=== PATIENT | female | born 1950 | race Caucasian/White ===

== ENCOUNTER 2017-03-28 07:28 | Emergency (ER) | payer OTHER ==
[2017-03-28] MEDS ORDERED: ONDANSETRON HCL IV 4 MG/2 ML VIAL IVP ONE (07:45)
[2017-03-28] MEDS ORDERED: HYDROMORPHONE HCL 1 MG/ML SYRINGE IVP ONE (07:45)
[2017-03-28] MEDS ORDERED: 0.9 % SODIUM CHLORIDE 1000ML 1,000 ML IV SCH (07:45)
--- NOTE | 2017-03-28 07:52 | Emergency Department Record ---
History of Present Illness - General Chief complaint: Pain Stated complaint: sharp pain r side up to shoulder Time Seen by Provider: 03/28/17 07:44 Source: Patient Mode of Arrival: Ambulatory Limitations: No limitations - History of Present Illness Initial comments: 67 yo female presents to ED for evaluation of RUQ pain that began approximately 2.5 hours ago. Patient denies vomiting, fevers, chills, or change in stools. Patient denies previous abdominal surgery, denies cough or chest pain symptoms. MD Complaint: Abdominal Pain Onset/Timin -: Hour(s) History of Same: No Quality: Sharp, Stabbing Consistency: Constant Improves with: Nothing Worsens with: Nothing Associated Symptoms: Denies other symptoms - Related Data Previous Rx's Medication Instructions Recorded Hydrocodone/Acetaminophen [[place] 1 each PO Q6H PRN #10 tablet 03/28/17 5-325 Tablet] Nitrofurantoin [place] [Macrobid] 100 mg PO BID #14 capsule 03/28/17 Allergies Allergy/AdvReac Type Severity Reaction Status Date / Time venom-honey bee Allergy Severe ANAPHYLAXIS Verified 03/28/17 07:36 [bee venom (honey bee)] dipyridamole Allergy Intermediate RASH Verified 03/28/17 07:36 prednisone AdvReac "prefer Verified 03/28/17 07:36 not to take" sulfamethoxazole AdvReac ABDOMINAL Verified 03/28/17 07:36 [From Bactrim] PAIN trimethoprim [From Bactrim] AdvReac ABDOMINAL Verified 03/28/17 07:36 PAIN Allergies: Allergy Unknown RASH Uncoded 08/12/13 19:25 Travel Screening - Travel/Exposure Within Last 30 Days Have you traveled within the last 30 days?: No Review of Systems Constitutional: Denies: Chills, Fever, Malaise, Night sweats Eyes: Denies: Eye discharge, Eye pain ENT: Denies: Congestion, Ear pain, Epistaxis Respiratory: Denies: Cough, Dyspnea Cardiovascular: Denies: Chest pain, Dyspnea on exertion Endocrine: Denies: Fatigue, Heat or cold intolerance Gastrointestinal: Reports: Abdominal pain. Denies: Constipation, Nausea, Vomiting Genitourinary: Denies: Incontinence, Retention Musculoskeletal: Denies: Arthralgia, Back pain, Gout, Joint swelling Skin: Denies: Bruising, Change in color Neurological: Denies: Abnormal gait, Confusion, Headache, Seizure Psychiatric: Denies: Anxiety Hematological/Lymphatic: Denies: Anemia, Blood Clots Past Medical History - SOCIAL HISTORY Smoking Status: Never smoker Alcohol Use: None Drug Use: None - RESPIRATORY Hx Respiratory Disorders: No - CARDIOVASCULAR Hx Cardio Disorders: Yes Hx Cardiac Cath: Yes (negative) Hx Hypertension: Yes Comment:: Born with a heart murmur-no problems or recent chest pain - NEURO Hx Neuro Disorders: Yes Hx of Migraines: Yes (rare) Hx TIA: Yes (many years ago) - GI Hx GI Disorders: Yes Hx Abdominal Pain: Yes Hx Diverticulitis: Yes Hx Reflux: Yes Hx Nausea/Vomiting: Yes Hx Ulcer: Yes Comment:: c/o constipation - Hx Genitourinary Disorders: No - ENDOCRINE Hx Endocrine Disorders: Yes Hx Thyroid Disease: Yes - MUSCULOSKELETAL Hx Musculoskeletal Disorders: Yes Comment:: Severe scoliosis - PSYCH Hx Psych Problems: No - HEMATOLOGY/ONCOLOGY Hx Hematology/Oncology Disorders: Yes Hx Cancer: Yes (cervical) Family Medical History Any Significant Family History?: Yes Hx Cancer: Brother/Sister Hx HTN: Mother Physical Exam - General General Appearance: Alert, Oriented x3, Cooperative, Moderate distress Limitations: No limitations - Head Head exam: Atraumatic, Normocephalic, Normal inspection Head exam detail: negative: Abrasion, Contusion, Major's sign, General tenderness, Hematoma, Laceration - Eye Eye exam: Normal appearance. negative: Conjunctival injection, Periorbital swelling, Periorbital tenderness, Scleral icterus - ENT Ear exam: negative: Auricular hematoma, Auricular trauma Nasal Exam: negative: Active bleeding, Discharge, Dried blood, Foreign body Mouth exam: negative: Drooling, Laceration, Muffled voice, Tongue elevation - Neck Neck exam: Normal inspection. negative: Meningismus, Tenderness - Respiratory Respiratory exam: Normal lung sounds bilaterally. negative: Rales, Respiratory distress, Rhonchi, Stridor - Cardiovascular Cardiovascular Exam: Regular rate, Normal rhythm, Normal heart sounds - GI/Abdominal GI/Abdominal exam: Soft, Tenderness, Other (TTP over the RUQ on examination, guarding present, no rebound.). negative: Rebound, Rigid - Rectal Rectal exam: Deferred - exam: Deferred - Extremities Extremities exam: Normal inspection. negative: Calf tenderness, Pedal edema, Tenderness - Back Back exam: Denies: CVA tenderness (R), CVA tenderness (L) - Neurological Neurological exam: Alert, Normal gait, Oriented X3 - Psychiatric Psychiatric exam: Normal affect, Normal mood - Skin Skin exam: Normal color. negative: Abrasion Type of lesion: negative: abrasion Course Vital Signs 03/28/17 07:31 Temperature 97.4 F L Pulse Rate 93 H Respiratory 20 Rate Blood Pressure 152/80 Pulse Ox 99 - Reevaluation(s) Reevaluation #1: 03/28/17 09:05 Labs reviewed and are grossly unremarkable for an acute process. Patient reassessed and updated on all results, reports that her pain symptoms are down to 5/10 and appears much more comfortable. Reevaluation #2: 03/28/17 09:20 CT Abdomen and Pelvis: No acute process Hepatic cysts. Reevaluation #3: 03/28/17 09:50 UA reviewed: 16-20 WBCs Few bacteria Will treat with Macrobid and instructions for further GB evaluation as outpatient. Medical Decision Making - Lab Data Result diagrams: 03/28/17 07:20 03/28/17 07:20 Disposition Disposition: Discharge Clinical Impression: Biliary colic Abdominal pain Qualifiers: Abdominal location: right upper quadrant Qualified Code(s): R10.11 - Right upper quadrant pain Disposition: Home, Self-Care Condition: (2) Stable Instructions: Biliary Colic (ED) Additional Instructions: Return to ED if your symptoms worsen or if you have any concerns. [place]/Macrobid as directed for recurrent pain symptoms. Follow-up with your family doctor in 3-5 days for further evaluation (possible HIDA scan). Prescriptions: Hydrocodone/Acetaminophen [[place] 5-325 Tablet] 1 each PO Q6H PRN #10 tablet PRN Reason: Pain - Moderate (5-7) Nitrofurantoin [place] [Macrobid] 100 mg PO BID #14 capsule Forms: Patient Portal Access Time of Disposition: 09:22 Quality - Quality Measures Quality Measures: N/A - Blood Pressure Screening Does Patient Have Any of the Following: Active Dx of HTN Blood Pressure Classification: Pre-Hypertensive BP Reading Systolic Measurement: 152 Diastolic Measurement: 80 Screening for High Blood Pressure: Patient Exclusion, Hx of HTN [G9744]
[2017-03-28 07:58] LABS: BASO % 0.4 % (0-6); EOS % 1.6 % (0-6); GRAN % 60.7 % (47-80); HEMATOCRIT 41.1 % (35.0-47.0); HEMOGLOBIN 13.7 gm/dl (11.6-16.0); LYMPH % 30.2 % (16-45); MEAN CELL VOLUME 88.2 fl (81-97); MEAN CORPUSCULAR HEMOGLOBIN 29.4 pg (27-33); MEAN CORPUSCULAR HGB CONC 33.3 g/dl (32-36); MEAN PLATELET VOLUME 9.7 fl (7.4-10.4); MONO % 7.1 % (0-9); PLATELET COUNT 347 K/uL (130-400); RED BLOOD COUNT 4.66 M/uL (3.80-5.40); RED CELL DISTRIBUTION WIDTH 14.1 % (11.5-14.5); WHITE BLOOD COUNT W/O DIFF 6.9 K/uL (4.2-12.2)
[2017-03-28 08:11] LABS: BLOOD UREA NITROGEN 18 mg/dL (8-23); CREATININE 0.6 mg/dL (0.5-0.9); EST GLOMERULAR FILTRATION RATE > 60 mL/min
[2017-03-28 08:14] LABS: GLUCOSE,RANDOM 103 mg/dL (74-109)
[2017-03-28 08:16] LABS: ALB/GLOB RATIO 1.4 (1.1-1.8); ALBUMIN 4.7 g/dL (4.0-5.0); ALT/SGPT 12 U/L (<33); AST/SGOT 14 U/L (10.0-35.0)
[2017-03-28 08:17] LABS: ALKALINE PHOSPHATASE 70 U/L (35-104); LIPASE 18 U/L (13-60)
[2017-03-28 09:36] LABS: URINE APPEARANCE CLEAR; URINE BILIRUBIN NEGATIVE (NEGATIVE); URINE BLOOD TRACE-I (NEGATIVE); URINE COLOR YELLOW; URINE GLUCOSE (UA) NEGATIVE (NEGATIVE); URINE KETONE NEGATIVE (NEGATIVE); URINE LEUKOCYTE ESTERASE MODERATE (NEGATIVE); URINE NITRITE NEGATIVE (NEGATIVE); URINE PROTEIN NEGATIVE (NEGATIVE); URINE UROBILINOGEN 0.2 E.U./dL (0.20 - 1.00)
[2017-03-28 09:43] LABS: URINE BACTERIA FEW; URINE EPITHELIAL CELLS 0 - 2 (FEW); URINE RBC 0 - 2 (NONE SEEN); URINE WBC 16 - 20 (0-2/hpf)
--- NOTE | 2017-03-30 00:17 | CT SCAN REPORT ---
EXAM: CT SCAN ABDOMEN/PELVIS W CONTRAST HISTORY: SEVERE RIGHT-SIDED ABDOMINAL PAIN SINCE THIS MORNING. TECHNIQUE: Standard CT imaging of the abdomen and pelvis was performed with contrast. 100 mL of Omnipaque-300 were administered. Additional coronal and sagittal reformatted images were also performed. COMPARISON: 08/09/2015. ENCOUNTER: Not applicable. FINDINGS: The lung bases are clear. Stable tiny cysts are present within the liver. The gallbladder is mildly distended but otherwise unremarkable. There is no evidence for acute cholecystitis. There is no biliary ductal dilatation. The pancreas, spleen, and adrenal glands are normal. Calcified granulomas are present within the spleen. The kidneys and ureters are unremarkable. There is no aortic aneurysm or dissection. There is no retroperitoneal lymphadenopathy. The stomach and epigastrium are normal. There is a moderate amount of stool within the colon. There are no associated inflammatory changes. A small appendicolith is present and is not significantly different from the prior study. The appendix is otherwise normal and air-filled. There is no evidence for appendicitis. The small bowel loops are normal in caliber. There is no pneumoperitoneum or ascites. The uterus and adnexa appear normal. The urinary bladder is unremarkable. Dextroconvex scoliosis is present within the thoracolumbar spine. Multilevel degenerative changes are also present within the spine. There are no acute osseous abnormalities. IMPRESSION: 1. NO ACUTE INTRAABDOMINAL PATHOLOGY. 2. STABLE CHRONIC FINDINGS ABOVE. JOB NUMBER: [id number] MTDD
== END 2017-03-28 10:00 | disposition home or self-care (01) ==
LOC: ER 07:28
DX: K80.50 Calculus of bile duct without cholangitis or cholecystitis without obstruction (principal); R10.11 Right upper quadrant pain; M25.511 Pain in right shoulder; I10 Essential (primary) hypertension
CPT/HCPCS: 99284 ×2; 96374; 83690; 85025; 80053; 81001; 74177; Q9967; J1170; J7030

== ENCOUNTER 2017-04-28 13:22 | Emergency (ER) | payer OTHER ==
--- NOTE | 2017-04-28 13:49 | Emergency Department Record ---
History of Present Illness - General Chief Complaint: Abdominal Pain Stated Complaint: ABD PAINS Time Seen by Provider: 04/28/17 13:47 Source: Patient, RN notes reviewed Mode of Arrival: Ambulatory - History of Present Illness Initial Comments: abdominal pain for 2 months and scheduled for an US of ABD on wednesday. Abd pain in the right upper quad area. Similiar episode feb and this episode started 2 hours ago and no vomiting with nausea and no diarrhia, CT of abd and pelvis mar 28 2017 negative MD Complaint: Abdominal pain Onset/Timin -: Month(s) Location: RUQ Radiation: None Migration to: No migration Severity: Severe Quality: Sharp Consistency: Intermittent Improves With: Nothing Worsens With: Nothing Associated Symptoms: Nausea - Related Data Hx Age of Menopause: 52 Previous Rx's Medication Instructions Recorded Oxycodone HCl/Acetaminophen 1 each PO Q4H PRN #14 tab 04/28/17 [Percocet 7.5mg/325mg] Allergies Allergy/AdvReac Type Severity Reaction Status Date / Time venom-honey bee Allergy Severe ANAPHYLAXIS Verified 03/28/17 07:36 [bee venom (honey bee)] dipyridamole Allergy Intermediate RASH Verified 03/28/17 07:36 acetaminophen [From [place]] AdvReac prefers Verified 04/28/17 13:38 not to take it hydrocodone [From [place]] AdvReac prefers Verified 04/28/17 13:38 not to take it morphine AdvReac prefers Verified 04/28/17 13:38 not to take it nitrofurantoin AdvReac stomach Verified 04/28/17 13:37 [From Macrobid] pains prednisone AdvReac "prefer Verified 03/28/17 07:36 not to take" sulfamethoxazole AdvReac ABDOMINAL Verified 03/28/17 07:36 [From Bactrim] PAIN trimethoprim [From Bactrim] AdvReac ABDOMINAL Verified 03/28/17 07:36 PAIN Allergies: Allergy Unknown RASH Uncoded 08/12/13 19:25 Travel Screening - Travel/Exposure Within Last 30 Days Have you traveled within the last 30 days?: No Review of Systems Reviewed: No additional complaints except as noted below Constitutional: Reports: As per HPI. Denies: Chills, Fever, Malaise, Night sweats, Weakness, Weight change Eyes: Reports: As per HPI. Denies: Eye discharge, Eye pain, Photophobia, Vision change ENT: Reports: As per HPI. Denies: Congestion, Dental pain, Ear pain, Epistaxis , Hearing loss, Throat pain Respiratory: Reports: As per HPI. Denies: Cough, Dyspnea, Hemoptysis, Stridor, Wheezes Cardiovascular: Reports: As per HPI. Denies: Arrhythmia, Chest pain, Dyspnea on exertion, Edema, Murmurs, Orthopnea, Palpitations, Paroxysmal nocturnal dyspnea, Rheumatic Fever, Syncope Endocrine: Reports: As per HPI. Denies: Fatigue, Heat or cold intolerance, Polydipsia, Polyuria Gastrointestinal: Reports: As per HPI, Abdominal pain (right upper quad), Nausea. Denies: Constipation, Diarrhea, Hematemesis, Hematochezia, Melena, Vomiting Genitourinary: Reports: As per HPI. Denies: Abnormal menses, Discharge, Dyspareunia, Dysuria, Frequency, Hematuria, Incontinence, Retention, Urgency Musculoskeletal: Reports: As per HPI. Denies: Arthralgia, Back pain, Gout, Joint swelling, Myalgia, Neck pain Skin: Reports: As per HPI. Denies: Bruising, Change in color, Change in hair/ nails, Lesions, Pruritus, Rash Neurological: Reports: As per HPI. Denies: Abnormal gait, Confusion, Headache, Numbness, Paresthesias, Seizure, Tingling, Tremors, Vertigo, Weakness Psychiatric: Reports: As per HPI. Denies: Anxiety, Auditory hallucinations, Depression, Homicidal thoughts, Suicidal thoughts, Visual hallucinations Hematological/Lymphatic: Reports: As per HPI. Denies: Anemia, Blood Clots, Easy bleeding, Easy bruising, Swollen glands Past Medical History - SOCIAL HISTORY Smoking Status: Never smoker Alcohol Use: None Drug Use: None - RESPIRATORY Hx Respiratory Disorders: No - CARDIOVASCULAR Hx Cardio Disorders: Yes Hx Cardiac Cath: Yes (negative) Hx Hypertension: Yes Comment:: Born with a heart murmur-no problems or recent chest pain - NEURO Hx Neuro Disorders: Yes Hx of Migraines: Yes (rare) Hx TIA: Yes - GI Hx GI Disorders: Yes Hx Abdominal Pain: Yes Hx Diverticulitis: Yes Hx Reflux: Yes Hx Nausea/Vomiting: Yes Hx Ulcer: Yes - Hx Genitourinary Disorders: No Comment:: cyst on one kidney (right?) - ENDOCRINE Hx Endocrine Disorders: Yes Hx Thyroid Disease: Yes - MUSCULOSKELETAL Hx Musculoskeletal Disorders: Yes Comment:: Severe scoliosis - PSYCH Hx Psych Problems: No - HEMATOLOGY/ONCOLOGY Hx Hematology/Oncology Disorders: Yes Hx Cancer: Yes (cervical) Family Medical History Any Significant Family History?: Yes Hx Cancer: Brother/Sister Hx HTN: Mother Physical Exam - General General Appearance: Alert, Oriented x3, Cooperative, Moderate distress - Head Head exam: Normal inspection - Eye Eye exam: Normal appearance, PERRL Pupils: Normal accommodation - ENT ENT exam: Normal exam, Mucous membranes moist, Normal external ear exam, Normal orophraynx, TM's normal bilaterally Ear exam: Normal external inspection. negative: External canal tenderness Nasal Exam: Normal inspection. negative: Discharge, Sinus tenderness Mouth exam: Normal external inspection, Tongue normal Teeth exam: Normal inspection. negative: Dental caries Throat exam: Normal inspection. negative: Tonsillar erythema, Tonsillar exudate - Neck Neck exam: Normal inspection, Full ROM. negative: Tenderness - Respiratory Respiratory exam: Normal lung sounds bilaterally. negative: Respiratory distress - Cardiovascular Cardiovascular Exam: Regular rate, Normal rhythm, Normal heart sounds - GI/Abdominal GI/Abdominal exam: Soft, Normal bowel sounds, Tenderness (right upper quad and positive murphies sign) - Rectal Rectal exam: Deferred - exam: Deferred - Extremities Extremities exam: Normal inspection, Full ROM, Normal capillary refill. negative: Tenderness - Back Back exam: Reports: Normal inspection, Full ROM. Denies: Muscle spasm, Rash noted, Tenderness - Neurological Neurological exam: Alert, Normal gait, Oriented X3, Reflexes normal - Psychiatric Psychiatric exam: Normal affect, Normal mood - Skin Skin exam: Dry, Intact, Normal color, Warm Course Vital Signs 04/28/17 13:33 Temperature 97.6 F Pulse Rate 111 H Respiratory 20 Rate Blood Pressure 172/86 Pulse Ox 98 - Reevaluation(s) Reevaluation #1: patient is feeling some better and still has moderate pain. Will discuss with Dr. Brownlee 04/28/17 16:11 Reevaluation #2: discussed case with Dr Brownlee and he could do the case tomorrow at [facility] or wednesday at [facility] and I gave the patient that choice and she wanted it done tomorrow at [facility]. 04/28/17 16:22 Medical Decision Making - Lab Data Result diagrams: 04/28/17 14:00 04/28/17 14:00 Disposition Clinical Impression: Right upper quadrant abdominal pain, Biliary colic Abdominal pain Qualifiers: Abdominal location: right upper quadrant Qualified Code(s): R10.11 - Right upper quadrant pain Disposition: Home, Self-Care Condition: (1) Good Instructions: Biliary Colic (ED) Additional Instructions: follow tomorrow at [facility] for GB surgery No fatty foods and NPO after midnight Prescriptions: Oxycodone HCl/Acetaminophen [Percocet 7.5mg/325mg] 1 each PO Q4H PRN #14 tab PRN Reason: Analgesia Forms: Patient Portal Access Time of Disposition: 16:26 Quality - Quality Measures Quality Measures: N/A - Blood Pressure Screening Does Patient Have Any of the Following: No Blood Pressure Classification: Pre-Hypertensive BP Reading Systolic Measurement: 172 Diastolic Measurement: 86 Screening for High Blood Pressure: < Pre-Hypertensive BP, F/U Documented > [ G8950] Pre-Hypertensive Follow-up Interventions: Referral to alternative/primary care provider.
[2017-04-28] MEDS ORDERED: 0.9 % SODIUM CHLORIDE 1,000 ML BAG IV ONE (13:57)
[2017-04-28 14:20] LABS: BASO % 0.2 % (0-6); EOS % 0.6 % (0-6); GRAN % 69.2 % (47-80); HEMATOCRIT 40.4 % (35.0-47.0); HEMOGLOBIN 13.7 gm/dl (11.6-16.0); LYMPH % 23.8 % (16-45); MEAN CELL VOLUME 86.7 fl (81-97); MEAN CORPUSCULAR HEMOGLOBIN 29.4 pg (27-33); MEAN CORPUSCULAR HGB CONC 33.9 g/dl (32-36); MONO % 6.2 % (0-9); PLATELET COUNT 328 K/uL (130-400); RED BLOOD COUNT 4.66 M/uL (3.80-5.40); RED CELL DISTRIBUTION WIDTH 13.6 % (11.5-14.5); URINE APPEARANCE CLEAR; URINE BILIRUBIN NEGATIVE (NEGATIVE); URINE BLOOD NEGATIVE (NEGATIVE); URINE COLOR YELLOW; URINE GLUCOSE (UA) NEGATIVE (NEGATIVE); URINE KETONE NEGATIVE (NEGATIVE); URINE LEUKOCYTE ESTERASE MODERATE (NEGATIVE); URINE NITRITE NEGATIVE (NEGATIVE); URINE PROTEIN NEGATIVE (NEGATIVE); URINE UROBILINOGEN 0.2 E.U./dL (0.20 - 1.00); WHITE BLOOD COUNT W/O DIFF 8.2 K/uL (4.2-12.2)
[2017-04-28 14:27] LABS: URINE EPITHELIAL CELLS RARE (FEW); URINE RBC NONE SEEN (NONE SEEN)
[2017-04-28 14:30] LABS: BLOOD UREA NITROGEN 16 mg/dL (8-23); CREATININE 0.6 mg/dL (0.5-0.9); EST GLOMERULAR FILTRATION RATE > 60 mL/min
[2017-04-28 14:33] LABS: AMYLASE 74 U/L (28-100); GLUCOSE,RANDOM 105 mg/dL (74-109)
[2017-04-28 14:35] LABS: ALT/SGPT 10 U/L (<33)
[2017-04-28] MEDS: ONDANSETRON HCL IV 4 MG/2 ML VIAL IV ONE (14:35)
[2017-04-28] MEDS: HYDROMORPHONE HCL 1 MG/ML SYRINGE IVP ONE ×2 (14:35→15:37)
[2017-04-28 14:36] LABS: ALBUMIN 4.8 g/dL (4.0-5.0); ALKALINE PHOSPHATASE 74 U/L (35-104); AST/SGOT 13 U/L (10.0-35.0); LIPASE 22 U/L (13-60)
[2017-04-28] MEDS: 0.9 % SODIUM CHLORIDE 1000ML 1,000 ML IV PRN (14:36)
[2017-04-28 14:38] LABS: BILIRUBIN,DIRECT < 0.2 mg/dL (0-0.3)
--- NOTE | 2017-04-29 08:54 | ULTRASOUND REPORT ---
EXAM: ULTRASOUND OF THE ABDOMEN COMPLETE HISTORY: RIGHT UPPER QUADRANT PAIN. TECHNIQUE: Routine ultrasound examination of the abdomen was performed. Comparison: Abdominal ultrasound dated 08/01/15. FINDINGS: The pancreatic body is partially visualized and without focal abnormality. The pancreatic head and tail are obscured by overlying bowel gas. The mid and distal portions of the abdominal aorta are not visualized due to overlying bowel gas. The proximal abdominal aorta appears normal in caliber. The intrahepatic IVC is patent. The liver is homogeneous in echotexture. No intra or extrahepatic biliary ductal dilatation is seen with the common hepatic duct measuring 4.8 mm. There is moderate distention of the gallbladder. There is a small amount of sludge within the dependent gallbladder though no shadowing gallstone is appreciated. No gross gallbladder wall thickening or pericholecystic fluid. The bank vault clerk does, however, report a positive sonographic Duarte's sign. The spleen is not enlarged and is homogeneous in echotexture. The left renal margins are not optimally visualized due to poor sonographic window. No hydronephrosis. No cystic nor contour deforming solid renal mass. The right kidney measures 10.4 cm in length while the left renal length is estimated at 8.5 cm. IMPRESSION: 1. NO CHOLELITHIASIS IDENTIFIED THOUGH THERE IS QUESTIONABLE SLUDGE DEPENDENTLY IN THE GALLBLADDER NECK. NO GALLBLADDER WALL THICKENING OR PERICHOLECYSTIC FLUID. POSITIVE SONOGRAPHIC DUARTE'S SIGN. ACUTE CHOLECYSTITIS CANNOT BE EXCLUDED. 2. SUBOPTIMAL VISUALIZATION OF THE PANCREAS, ABDOMINAL AORTA AND LEFT KIDNEY. JOB NUMBER: [id number] MTDD
== END 2017-04-28 17:34 | disposition home or self-care (01) ==
LOC: ER 13:22
DX: K80.50 Calculus of bile duct without cholangitis or cholecystitis without obstruction (principal); R10.11 Right upper quadrant pain; R11.0 Nausea; I10 Essential (primary) hypertension
CPT/HCPCS: 76700; 80048; 80076; 81001; 82150; 83690; 85025; 96374; 96375; 96376; 99284; J1170; J2405

== ENCOUNTER 2017-08-27 16:01 | Emergency (ER) | payer OTHER ==
--- NOTE | 2017-08-27 16:10 | Emergency Department Record ---
History of Present Illness - General Chief Complaint: Abdominal Pain Stated Complaint: ABD PAIN Time Seen by Provider: 08/27/17 16:08 Source: Patient Mode of Arrival: Ambulatory Limitations: No limitations - History of Present Illness Initial Comments: The patient is here due to a 2-3 day hx of cramping diffuse AP mainly on the L with the LUQ> LLQ. She has had nausea but no vomiting, diarrhea, dysuria, or fever. The patient believes she is having Diverticulitis due to having similar pain like this in the past. The patient states her only abdominal surgery is a Cholecystectomy. She denies any loss of appetite or back pain. MD Complaint: Abdominal pain Onset/Timin -: Days(s) Location: LUQ, LLQ Radiation: LUQ, LLQ Quality: Cramping, Other Associated Symptoms: Nausea - Related Data Hx Age of Menopause: 52 Previous Rx's Medication Instructions Recorded Ciprofloxacin HCl [Cipro] 500 mg PO Q12HR #14 tablet 08/27/17 Metronidazole [Flagyl] 500 mg PO BID #14 tablet 08/27/17 Allergies Allergy/AdvReac Type Severity Reaction Status Date / Time venom-honey bee Allergy Severe ANAPHYLAXIS Verified 08/27/17 16:03 [bee venom (honey bee)] acetaminophen [From [place]] AdvReac prefers Verified 08/27/17 16:03 not to take it hydrocodone [From [place]] AdvReac prefers Verified 08/27/17 16:03 not to take it morphine AdvReac prefers Verified 08/27/17 16:03 not to take it nitrofurantoin AdvReac stomach Verified 08/27/17 16:03 [From Macrobid] pains prednisone AdvReac "prefer Verified 08/27/17 16:03 not to take" sulfamethoxazole AdvReac ABDOMINAL Verified 08/27/17 16:03 [From Bactrim] PAIN trimethoprim [From Bactrim] AdvReac ABDOMINAL Verified 08/27/17 16:03 PAIN Allergies: Allergy Unknown RASH Uncoded 08/12/13 19:25 Travel Screening - Travel/Exposure Within Last 30 Days Have you traveled within the last 30 days?: No Review of Systems Constitutional: Denies: Chills, Fever Eyes: Denies: Eye discharge ENT: Denies: Congestion Respiratory: Denies: Cough, Dyspnea Past Medical History - SOCIAL HISTORY Smoking Status: Never smoker Alcohol Use: None Drug Use: None - RESPIRATORY Hx Respiratory Disorders: No - CARDIOVASCULAR Hx Cardio Disorders: Yes Hx Cardiac Cath: Yes (negative) Hx Hypertension: Yes Comment:: Born with a heart murmur-no problems or recent chest pain - NEURO Hx Neuro Disorders: Yes Hx of Migraines: Yes (rare) Hx TIA: Yes - GI Hx GI Disorders: Yes Hx Abdominal Pain: Yes Hx Diverticulitis: Yes (diverticulosis) Hx Reflux: Yes Hx Nausea/Vomiting: Yes Hx Ulcer: Yes - Hx Genitourinary Disorders: No Comment:: cyst on one kidney (right?) - ENDOCRINE Hx Endocrine Disorders: Yes Hx Thyroid Disease: Yes - MUSCULOSKELETAL Hx Musculoskeletal Disorders: Yes Comment:: Severe scoliosis - PSYCH Hx Psych Problems: No - HEMATOLOGY/ONCOLOGY Hx Hematology/Oncology Disorders: Yes Hx Cancer: Yes (cervical) Family Medical History Any Significant Family History?: Yes Hx Cancer: Brother/Sister Hx HTN: Mother Physical Exam - General General Appearance: Alert, Oriented x3, Cooperative, No acute distress - Head Head exam: Atraumatic, Normocephalic, Normal inspection - Eye Eye exam: Normal appearance, PERRL, EOMI - Neck Neck exam: Normal inspection, Full ROM. negative: Tenderness - Respiratory Respiratory exam: Normal lung sounds bilaterally. negative: Respiratory distress - Cardiovascular Cardiovascular Exam: Regular rate, Normal rhythm, Systolic murmur (mild.). negative: Normal heart sounds - GI/Abdominal GI/Abdominal exam: Soft, Normal bowel sounds, Tenderness (There is mild diffuse tenderness in all 4 quads with the L side > R side. There is no guarding or rebound and the abdomen is very soft.) - Extremities Extremities exam: Normal inspection, Full ROM, Normal capillary refill. negative: Tenderness - Neurological Neurological exam: Alert. negative: Motor sensory deficit Course Vital Signs 08/27/17 16:04 Temperature 97.6 F Pulse Rate 92 H Respiratory 18 Rate Blood Pressure 163/89 Pulse Ox 99 - Reevaluation(s) Reevaluation #1: The patient is doing better at this time after the GI cocktail. She denies any significant pain and on exam has only very mild LLQ tenderness. There is no RLQ tenderness. I did explain the lab and CT results and the UA that does demonstrate a UTI. 08/27/17 17:48 Medical Decision Making - Data Complexity MDM Data: Labs Ordered and/or Reviewed, X-Ray Ordered and/or Reviewed - Lab Data Result diagrams: 08/27/17 16:15 08/27/17 16:15 - Radiology Data Radiology results: Report reviewed (CT: Diverticulosis with no definite Diverticulitis. There is a Appendicolith but no signs of appendicitis.) Disposition Disposition: Discharge Clinical Impression: Cystitis Disposition: Home, Self-Care Condition: (2) Stable Instructions: Urinary Tract Infection in Women (ED), Abdominal Pain (ED) Additional Instructions: Please take your home pain medicines and take the Cipro and Flagyl as directed. Please see your family doctor for recheck on Wednesday if not better and return to the ER for any worsening pain, fever, or vomiting. Prescriptions: Ciprofloxacin HCl [Cipro] 500 mg PO Q12HR #14 tablet Metronidazole [Flagyl] 500 mg PO BID #14 tablet Forms: Patient Portal Access Time of Disposition: 17:52 Quality - Quality Measures Quality Measures: N/A - Blood Pressure Screening View Details: Yes Does Patient Have Any of the Following: No Blood Pressure Classification: Pre-Hypertensive BP Reading Systolic Measurement: 163 Diastolic Measurement: 89 Screening for High Blood Pressure: < Pre-Hypertensive BP, F/U Documented > [ G8950] Pre-Hypertensive Follow-up Interventions: Referral to alternative/primary care provider.
[2017-08-27] MEDS ORDERED: ONDANSETRON HCL IV 4 MG/2 ML VIAL IV ONE (16:12)
[2017-08-27 16:27] LABS: BASO % 0.4 % (0-6); EOS % 0.7 % (0-6); GRAN % 57.1 % (47-80); HEMATOCRIT 40.6 % (35.0-47.0); HEMOGLOBIN 13.9 gm/dl (11.6-16.0); LYMPH % 34.2 % (16-45); MEAN CELL VOLUME 86.6 fl (81-97); MEAN CORPUSCULAR HEMOGLOBIN 29.6 pg (27-33); MEAN CORPUSCULAR HGB CONC 34.2 g/dl (32-36); MEAN PLATELET VOLUME 9.9 fl (7.4-10.4); MONO % 7.6 % (0-9); PLATELET COUNT 331 K/uL (130-400); RED BLOOD COUNT 4.69 M/uL (3.80-5.40); RED CELL DISTRIBUTION WIDTH 13.8 % (11.5-14.5); WHITE BLOOD COUNT W/O DIFF 8.1 K/uL (4.2-12.2)
[2017-08-27] MEDS: MAGNESIUM HYDROXIDE/AL HYDROX 30 ML, LIDOCAINE VISC 2% 15ML 15 ML PO ONE ×2 (16:31)
[2017-08-27] MEDS: 0.9 % SODIUM CHLORIDE 1,000 ML BAG IV ONE (16:32)
[2017-08-27 16:42] LABS: BLOOD UREA NITROGEN 8 mg/dL (8-23); CREATININE 0.6 mg/dL (0.5-0.9); EST GLOMERULAR FILTRATION RATE > 60 mL/min
[2017-08-27 16:45] LABS: GLUCOSE,RANDOM 95 mg/dL (74-109)
[2017-08-27 16:48] LABS: LIPASE 13 U/L (13-60)
[2017-08-27 16:55] LABS: TOTAL PROTEIN 7.6 g/dL (6.6-8.7)
[2017-08-27 17:00] LABS: ALBUMIN 4.7 g/dL (4.0-5.0); ALKALINE PHOSPHATASE 79 U/L (35-104); ALT/SGPT 14 U/L (<33); AST/SGOT 15 U/L (10.0-35.0)
[2017-08-27 17:01] LABS: BILIRUBIN,DIRECT < 0.2 mg/dL (0-0.3)
[2017-08-27 17:26] LABS: URINE APPEARANCE CLEAR; URINE BILIRUBIN NEGATIVE (NEGATIVE); URINE BLOOD TRACE-I (NEGATIVE); URINE COLOR YELLOW; URINE GLUCOSE (UA) NEGATIVE (NEGATIVE); URINE KETONE NEGATIVE (NEGATIVE); URINE LEUKOCYTE ESTERASE LARGE (NEGATIVE); URINE NITRITE NEGATIVE (NEGATIVE); URINE PROTEIN NEGATIVE (NEGATIVE); URINE UROBILINOGEN 0.2 E.U./dL (0.20 - 1.00)
[2017-08-27 17:36] LABS: URINE BACTERIA NONE SEEN; URINE EPITHELIAL CELLS 0 - 2 (FEW); URINE WBC 21 - 35 (0-2/hpf)
[2017-08-27] MEDS: KETOROLAC 30 MG/ML VIAL IVP ONE (17:45)
--- NOTE | 2017-08-29 13:07 | CT SCAN REPORT ---
DATE: 08/27/2017 at 1644 hours. EXAM: CT OF THE ABDOMEN AND PELVIS WITHOUT CONTRAST. HISTORY: Left lower quadrant and left upper abdominal pain since Wednesday with nausea. TECHNIQUE: Noncontrast images are obtained from the dome of the diaphragm to the symphysis pubis. FINDINGS: The lung bases and pleural spaces are clear. The liver is unremarkable in size and shape except for prominence of the left lobe of the liver. No definite hepatic masses are seen. The gallbladder is surgically absent. There are granulomata in the spleen without masses. The pancreas is poorly evaluated without intravenous contrast, but there are no obvious pancreatic masses. There is no evidence of renal calculi or hydronephrosis. There is no evidence of mesenteric mass or bowel dilatation. There is a calcified appendicolith in a nondilated appendix. There is no evidence of significant mesenteric inflammatory change. There are only scattered colonic diverticula without convincing evidence of diverticulitis. IMPRESSION: 1. THE EXAMINATION IS MODERATELY LIMITED WITHOUT INTRAVENOUS CONTRAST. THERE IS A CALCIFIED APPENDICOLITH PRESENT WITHOUT CONVINCING EVIDENCE FOR APPENDICITIS. 2. THERE ARE A FEW DIVERTICULA PRESENT WITHOUT EVIDENCE OF DIVERTICULITIS. NO RENAL OBSTRUCTIVE DISEASE IS SEEN. 3. NOTE IS MADE OF A PRONOUNCED DEXTROCONVEX THORACOLUMBAR ROTOSCOLIOSIS. JOB NUMBER: [id number] MTDD
== END 2017-08-27 18:12 | disposition home or self-care (01) ==
LOC: ER 16:01
DX: N30.01 Acute cystitis with hematuria (principal); R10.84 Generalized abdominal pain; R11.0 Nausea; I10 Essential (primary) hypertension
CPT/HCPCS: 99284 ×2; 96374; 83690; 85025; 80076; 80048; 81001; 74176; J1885; J3490; J7030

== ENCOUNTER 2017-08-29 19:30 | Emergency (ER) | payer OTHER ==
[2017-08-29] MEDS ORDERED: 0.9 % SODIUM CHLORIDE 1,000 ML BAG IV ONE (19:56)
[2017-08-29] MEDS ORDERED: ONDANSETRON HCL IV 4 MG/2 ML VIAL IV ONE (19:56)
--- NOTE | 2017-08-29 20:02 | Emergency Department Record ---
History of Present Illness - General Chief Complaint: Abdominal Pain Stated Complaint: ABDOMINAL PAIN Time Seen by Provider: 08/29/17 19:56 Source: Patient Mode of Arrival: Ambulatory Limitations: No limitations - History of Present Illness Initial Comments: 67 yo female presents with abdominal pain since Wednesday. The pain comes and goes. She has associated nausea without any vomiting. No diarrhea. No fevers. Her appetite is decreased. She reports a history of prior renal stones and diverticulosis with prior diverticulitis. No rash. The pain is migratory. She reports pain on the right and the left at different times. At the time of this examination she holds her left side. She was in the ED on Wednesday. MD Complaint: Abdominal pain Onset/Timin -: Days(s) Radiation: R flank, RLQ Migration to: R Flank Severity: Severe Severity scale (1-10): 9 Quality: Sharp, Stabbing Consistency: Constant Worsens With: Movement Associated Symptoms: Nausea - Related Data LMP (females 10-50): Unknown Hx Age of Menopause: 52 Previous Rx's Medication Instructions Recorded Ciprofloxacin HCl [Cipro] 500 mg PO Q12HR #14 tablet 08/27/17 Metronidazole [Flagyl] 500 mg PO BID #14 tablet 08/27/17 Allergies Allergy/AdvReac Type Severity Reaction Status Date / Time venom-honey bee Allergy Severe ANAPHYLAXIS Verified 08/27/17 16:03 [bee venom (honey bee)] acetaminophen [From [place]] AdvReac prefers Verified 08/27/17 16:03 not to take it hydrocodone [From [place]] AdvReac prefers Verified 08/27/17 16:03 not to take it morphine AdvReac prefers Verified 08/27/17 16:03 not to take it nitrofurantoin AdvReac stomach Verified 08/27/17 16:03 [From Macrobid] pains prednisone AdvReac "prefer Verified 08/27/17 16:03 not to take" sulfamethoxazole AdvReac ABDOMINAL Verified 08/27/17 16:03 [From Bactrim] PAIN trimethoprim [From Bactrim] AdvReac ABDOMINAL Verified 08/27/17 16:03 PAIN Allergies: Allergy Unknown RASH Uncoded 08/12/13 19:25 Travel Screening - Travel/Exposure Within Last 30 Days Have you traveled within the last 30 days?: No - Travel Symptoms Symptom Screening: None Review of Systems Constitutional: Denies: Chills, Fever, Malaise, Weakness Eyes: Denies: Eye discharge ENT: Denies: Congestion, Throat pain Respiratory: Denies: Cough, Dyspnea, Hemoptysis, Wheezes Cardiovascular: Denies: Chest pain, Syncope Endocrine: Reports: Fatigue. Denies: Polydipsia, Polyuria Gastrointestinal: Reports: Abdominal pain, Nausea. Denies: Constipation, Diarrhea, Hematemesis, Hematochezia, Melena, Vomiting Genitourinary: Denies: Dysuria, Urgency Musculoskeletal: Reports: Back pain. Denies: Arthralgia, Joint swelling, Myalgia Skin: Denies: Bruising, Change in color, Rash Neurological: Denies: Headache, Numbness, Weakness Psychiatric: Denies: Anxiety Hematological/Lymphatic: Denies: Easy bleeding, Easy bruising, Swollen glands Past Medical History - SOCIAL HISTORY Smoking Status: Never smoker Alcohol Use: None Drug Use: None - RESPIRATORY Hx Respiratory Disorders: No - CARDIOVASCULAR Hx Cardio Disorders: Yes Hx Cardiac Cath: Yes (negative) Hx Hypertension: Yes Comment:: Born with a heart murmur-no problems or recent chest pain - NEURO Hx Neuro Disorders: Yes Hx of Migraines: Yes (rare) Hx TIA: Yes - GI Hx GI Disorders: Yes Hx Abdominal Pain: Yes Hx Diverticulitis: Yes (diverticulosis) Hx Reflux: Yes Hx Nausea/Vomiting: Yes Hx Ulcer: Yes - Hx Genitourinary Disorders: No Comment:: cyst on one kidney (right?) - ENDOCRINE Hx Endocrine Disorders: Yes Hx Thyroid Disease: Yes - MUSCULOSKELETAL Hx Musculoskeletal Disorders: Yes Comment:: Severe scoliosis - PSYCH Hx Psych Problems: No - HEMATOLOGY/ONCOLOGY Hx Hematology/Oncology Disorders: Yes Hx Cancer: Yes (cervical) Family Medical History Any Significant Family History?: Yes Hx Cancer: Brother/Sister Hx HTN: Mother Physical Exam - General General Appearance: Alert, Oriented x3, Cooperative, No acute distress Limitations: No limitations - Head Head exam: Atraumatic, Normal inspection - Eye Eye exam: Normal appearance. negative: Conjunctival injection, Scleral icterus - ENT ENT exam: Normal exam, Mucous membranes moist Ear exam: Normal external inspection Nasal Exam: Normal inspection Mouth exam: Normal external inspection - Neck Neck exam: Normal inspection, Full ROM. negative: Tenderness - Respiratory Respiratory exam: Normal lung sounds bilaterally. negative: Respiratory distress - Cardiovascular Cardiovascular Exam: Normal rhythm, Normal heart sounds, Tachycardia (mild) - GI/Abdominal GI/Abdominal exam: Soft, Tenderness (tender LUQ and LLQ, soft, no mass). negative: Distended, Guarding, Hypoactive bowel sounds, Rebound, Rigid - Rectal Rectal exam: Deferred - exam: Deferred - Extremities Extremities exam: Normal inspection, Full ROM, Normal capillary refill. negative: Pedal edema, Tenderness - Back Back exam: Reports: Normal inspection, Full ROM. Denies: CVA tenderness (R), CVA tenderness (L), Muscle spasm, Paraspinal tenderness, Rash noted, Tenderness - Neurological Neurological exam: Alert, Normal gait, Oriented X3, Reflexes normal - Psychiatric Psychiatric exam: Normal affect, Normal mood - Skin Skin exam: Dry, Intact, Normal color, Warm Course Vital Signs 08/29/17 19:39 Temperature 97.6 F Pulse Rate [ 112 H Pulse Ox Probe] Respiratory 20 Rate Blood Pressure 157/93 [Left Arm] Pulse Ox 100 - Reevaluation(s) Reevaluation #1: 08/29/17 20:06 EMR was reviewed from prior visit CT reviewed. Radiologist noted limited study without contrast Given she is worse, recommend re-CT with contrast. The patient agrees with the plan 08/29/17 20:17 The patient had an IV and Oral contrast in February of 2017 without reaction. She reports a reaction many years ago. She was offered pretreatment but declined given she has had the recent CT without symptoms. 08/29/17 20:41 The labs were reviewed No acute changes on the CBC Mild decrease in HCO3 08/29/17 22:[address] was reviewed. No acute changes. Stable appendicolith, few non inflamed diverticuli DC home, continue antibiotics that were started. Call Dr Christopher in the AM Medical Decision Making - Lab Data Result diagrams: 08/29/17 19:45 08/29/17 19:45 Disposition Disposition: Discharge Clinical Impression: Abdominal pain Disposition: Home, Self-Care Condition: (1) Good Instructions: Abdominal Pain (ED) Additional Instructions: Call Dr Christopher in the morning for close follow up Return if vomiting, fever, or new concerns. Forms: Patient Portal Access Time of Disposition: 22:53 Quality - Quality Measures Quality Measures: N/A - Blood Pressure Screening Does Patient Have Any of the Following: Active Dx of HTN Blood Pressure Classification: Hypertensive Reading Systolic Measurement: 141 Diastolic Measurement: 78 Screening for High Blood Pressure: Patient Exclusion, Hx of HTN [G9934]
[2017-08-29 20:05] LABS: BASO % 0.3 % (0-6); EOS % 1.3 % (0-6); GRAN % 60.2 % (47-80); HEMATOCRIT 40.9 % (35.0-47.0); HEMOGLOBIN 13.8 gm/dl (11.6-16.0); LYMPH % 30.5 % (16-45); MEAN CELL VOLUME 87.8 fl (81-97); MEAN CORPUSCULAR HEMOGLOBIN 29.6 pg (27-33); MEAN CORPUSCULAR HGB CONC 33.7 g/dl (32-36); MEAN PLATELET VOLUME 10.5 fl (7.4-10.4); MONO % 7.7 % (0-9); PLATELET COUNT 357 K/uL (130-400); RED BLOOD COUNT 4.66 M/uL (3.80-5.40); RED CELL DISTRIBUTION WIDTH 13.7 % (11.5-14.5); WHITE BLOOD COUNT W/O DIFF 9.2 K/uL (4.2-12.2)
[2017-08-29] MEDS ORDERED: ACETAMINOPHEN 1,000 MG/100 ML BTL IVPB ONE (20:05)
[2017-08-29 20:18] LABS: BLOOD UREA NITROGEN 13 mg/dL (8-23); CREATININE 0.7 mg/dL (0.5-0.9); EST GLOMERULAR FILTRATION RATE > 60 mL/min
[2017-08-29 20:19] LABS: TOTAL PROTEIN 7.8 g/dL (6.6-8.7)
[2017-08-29 20:21] LABS: GLUCOSE,RANDOM 105 mg/dL (74-109)
[2017-08-29 20:23] LABS: ALB/GLOB RATIO 1.5 (1.1-1.8); ALBUMIN 4.7 g/dL (4.0-5.0); ALKALINE PHOSPHATASE 81 U/L (35-104); ALT/SGPT 12 U/L (<33); AST/SGOT 16 U/L (10.0-35.0)
[2017-08-29 20:24] LABS: LIPASE 23 U/L (13-60)
[2017-08-29] MEDS ORDERED: HYDROMORPHONE HCL 2 MG/ML VIAL IVP ONE (21:42)
[2017-08-29 22:45] LABS: URINE APPEARANCE CLEAR; URINE BILIRUBIN NEGATIVE (NEGATIVE); URINE BLOOD NEGATIVE (NEGATIVE); URINE COLOR YELLOW; URINE GLUCOSE (UA) NEGATIVE (NEGATIVE); URINE KETONE NEGATIVE (NEGATIVE); URINE LEUKOCYTE ESTERASE TRACE (NEGATIVE); URINE NITRITE NEGATIVE (NEGATIVE); URINE PROTEIN NEGATIVE (NEGATIVE); URINE UROBILINOGEN 0.2 E.U./dL (0.20 - 1.00)
[2017-08-29 22:54] LABS: URINE BACTERIA FEW; URINE EPITHELIAL CELLS 0 - 2 (FEW); URINE RBC 0 - 2 (NONE SEEN)
--- NOTE | 2017-08-30 10:27 | CT SCAN REPORT ---
EXAM: CT SCAN OF THE ABDOMEN AND PELVIS WITH CONTRAST HISTORY: ABDOMINAL PAIN WITHIN THE LEFT SIDE AND RIGHT LOWER QUADRANT. NAUSEA. HISTORY OF DIVERTICULITIS. TECHNIQUE: Standard CT imaging of the abdomen and pelvis was performed with oral and intravenous contrast. 100 ml of Omnipaque 300 were administered. Comparison: 08/27/17. FINDINGS: The lung bases are clear. Tiny cysts are present within the liver and appear unchanged. The gallbladder is surgically absent. There is no biliary ductal dilatation. The pancreas and adrenal glands are normal. The spleen is normal in size and contains multiple calcified granulomas. The kidneys and ureters are normal in appearance. The aorta is normal in caliber. There is no aneurysm or dissection. There is no retroperitoneal lymphadenopathy. Moderate stool and air are present within the colon. A few scattered diverticula are present with no evidence for acute diverticulitis. A small appendicolith is present within the appendix. The appendix is nondilated and noninflamed. There is no evidence for acute appendicitis. The small bowel loops are normal in caliber. There is no pneumoperitoneum or ascites. The urinary bladder is mildly distended. The uterus and adnexa appear normal. There is marked dextroconvex scoliosis within the thoracolumbar spine. There are no acute osseous abnormalities. IMPRESSION: 1. NO ACUTE INTRAABDOMINAL PATHOLOGY. 2. MILD SIGMOID DIVERTICULOSIS WITH NO EVIDENCE FOR ACUTE DIVERTICULITIS. 3. STABLE SMALL APPENDICOLITH WITH NO EVIDENCE FOR ACUTE APPENDICITIS. 4. ADDITIONAL STABLE CHRONIC FINDINGS ABOVE. JOB NUMBER: [id number] MTDD
== END 2017-08-29 23:20 | disposition home or self-care (01) ==
LOC: ER 19:30
DX: R10.31 Right lower quadrant pain (principal); R11.0 Nausea; Z87.442 Personal history of urinary calculi; I10 Essential (primary) hypertension
CPT/HCPCS: 99284 ×2; 96374; 96375; 83690; 85025; 80053; 81001; 74177; Q9967; J1170; J7030

== ENCOUNTER 2018-06-17 14:32 | Emergency (ER) | payer OTHER ==
[2018-06-17] MEDS ORDERED: ACETAMINOPHEN 1,000 MG/100 ML BTL IVPB ONE (14:54)
[2018-06-17] MEDS ORDERED: 0.9 % SODIUM CHLORIDE 1000ML 1,000 ML IV ONE (14:54)
--- NOTE | 2018-06-17 15:03 | Emergency Department Record ---
History of Present Illness - General Chief Complaint: Abdominal Pain Stated Complaint: ABD PAIN Time Seen by Provider: 06/17/18 14:48 Source: Patient, Family Mode of Arrival: Ambulatory Limitations: No limitations - History of Present Illness Initial Comments: 68 yo female presents with two hours of right sided abdominal pain. The pain is sharp. The pain started while sitting working on balancing her check book. NO rash. No fever. She has very mild nausea. No vomiting, fever, diarrhea, cough, chest pain. No prior similar history. She has had a cholecystectomy in the past. Dr Christopher is her doctor. MD Complaint: Abdominal pain Onset/Timin -: Hour(s) Location: RUQ Radiation: None Migration to: No migration Severity: Severe Severity scale (1-10): 10 Quality: Stabbing Consistency: Constant Improves With: Nothing Worsens With: Nothing Associated Symptoms: Nausea - Related Data Hx Age of Menopause: 52 Previous Rx's Medication Instructions Recorded Cephalexin [Keflex] 500 mg PO TID #30 cap 06/17/18 Allergies Allergy/AdvReac Type Severity Reaction Status Date / Time venom-honey bee Allergy Severe ANAPHYLAXIS Verified 06/17/18 14:42 [bee venom (honey bee)] acetaminophen [From [place]] AdvReac prefers Verified 06/17/18 14:42 not to take it hydrocodone [From [place]] AdvReac prefers Verified 06/17/18 14:42 not to take it morphine AdvReac prefers Verified 06/17/18 14:42 not to take it nitrofurantoin AdvReac stomach Verified 06/17/18 14:42 [From Macrobid] pains prednisone AdvReac "prefer Verified 06/17/18 14:42 not to take" sulfamethoxazole AdvReac ABDOMINAL Verified 06/17/18 14:42 [From Bactrim] PAIN trimethoprim [From Bactrim] AdvReac ABDOMINAL Verified 06/17/18 14:42 PAIN Allergies: Allergy Unknown RASH Uncoded 08/12/13 19:25 Travel Screening - Travel/Exposure Within Last 30 Days Have you traveled within the last 30 days?: No Review of Systems Constitutional: Denies: Chills, Fever, Malaise, Weakness Eyes: Denies: Eye discharge ENT: Denies: Congestion, Throat pain Respiratory: Denies: Cough Cardiovascular: Denies: Chest pain, Palpitations, Syncope Endocrine: Denies: Fatigue Gastrointestinal: Reports: As per HPI, Abdominal pain, Nausea. Denies: Diarrhea , Vomiting Genitourinary: Denies: Dysuria, Urgency Musculoskeletal: Denies: Arthralgia, Back pain, Joint swelling, Myalgia Skin: Denies: Bruising, Change in color, Rash Neurological: Denies: Headache Psychiatric: Denies: Anxiety Hematological/Lymphatic: Denies: Easy bleeding, Easy bruising Past Medical History - SOCIAL HISTORY Smoking Status: Never smoker Alcohol Use: None Drug Use: None - RESPIRATORY Hx Respiratory Disorders: No - CARDIOVASCULAR Hx Cardio Disorders: Yes Hx Cardiac Cath: Yes (negative) Hx Hypertension: Yes - NEURO Hx Neuro Disorders: Yes Hx of Migraines: Yes (rare) Hx TIA: Yes - GI Hx GI Disorders: Yes Hx Abdominal Pain: Yes Hx Diverticulitis: Yes (diverticulosis) Hx Reflux: Yes Hx Nausea/Vomiting: Yes Hx Ulcer: Yes - Hx Genitourinary Disorders: No Comment:: cyst on one kidney (right?) - ENDOCRINE Hx Endocrine Disorders: Yes Hx Thyroid Disease: Yes - MUSCULOSKELETAL Hx Musculoskeletal Disorders: Yes Comment:: Severe scoliosis - PSYCH Hx Psych Problems: No - HEMATOLOGY/ONCOLOGY Hx Hematology/Oncology Disorders: Yes Hx Cancer: Yes (cervical) Family Medical History Any Significant Family History?: Yes Hx Cancer: Brother/Sister Hx HTN: Mother Physical Exam - General General Appearance: Alert, Oriented x3, Cooperative, No acute distress Limitations: No limitations - Head Head exam: Atraumatic, Normal inspection - Eye Eye exam: Normal appearance, PERRL. negative: Conjunctival injection, Scleral icterus - ENT ENT exam: Normal exam, Mucous membranes moist Ear exam: Normal external inspection Nasal Exam: Normal inspection Mouth exam: Normal external inspection - Neck Neck exam: Normal inspection - Respiratory Respiratory exam: Normal lung sounds bilaterally. negative: Respiratory distress - Cardiovascular Cardiovascular Exam: Regular rate, Normal rhythm, Normal heart sounds - GI/Abdominal GI/Abdominal exam: Soft, Normal bowel sounds, Tenderness (soft abdomen but tender RUQ, R mid lateral and RLQ, normal inspection). negative: Diminished bowel sounds, Pulsatile mass - Rectal Rectal exam: Deferred - exam: Deferred - Extremities Extremities exam: Normal inspection. negative: Tenderness - Back Back exam: Reports: CVA tenderness (R), Tenderness. Denies: CVA tenderness (L) - Neurological Neurological exam: Alert, Oriented X3 - Psychiatric Psychiatric exam: Normal affect, Normal mood - Skin Skin exam: Dry, Intact, Normal color, Warm Course Vital Signs 06/17/18 14:40 Pulse Rate 118 H Respiratory 24 Rate Blood Pressure 206/90 Pulse Ox 98 - Reevaluation(s) Reevaluation #1: 06/17/18 15:10 The CBC was reviewed and is normal 06/17/18 15:30 No acute changes on the CBC or CMP 06/17/18 17:30 The UA is consistent with UTI Antibiotic ordered in the ED The CT scan was negative for acute intra-abdominal process We discussed the results of the tests and questions were answered at the time of discharge. DC vitals were reviewed. We discussed at length reasons to immediately return to the ED as well as close follow up. The patient will call the PCP for close follow up of this ED visit to review this visit and the tests performed 06/17/18 17:33 Medical Decision Making - Lab Data Result diagrams: 06/17/18 14:45 06/17/18 14:45 Disposition Disposition: Discharge Clinical Impression: Abdominal pain, Urinary tract infection Disposition: Home, Self-Care Condition: (1) Good Instructions: Abdominal Pain (ED), Urinary Tract Infection in Women (ED) Additional Instructions: Call your doctor for the next available follow up appointment Return to the ER for a recheck if worse, any new concerns or questions Take the prescriptions provided as directed Review this ER visit and the tests performed with your family doctor Prescriptions: Cephalexin [Keflex] 500 mg PO TID #30 cap Forms: Patient Portal Access Time of Disposition: 17:34 Quality - Quality Measures Quality Measures: N/A - Blood Pressure Screening Does Patient Have Any of the Following: Active Dx of HTN Blood Pressure Classification: Hypertensive Reading Systolic Measurement: 206 Diastolic Measurement: 90 Screening for High Blood Pressure: Patient Exclusion, Hx of HTN [G9744]
[2018-06-17 15:04] LABS: BASO % 0.5 % (0-6); EOS % 0.6 % (0-6); GRAN % 64.4 % (47-80); MEAN CELL VOLUME 87.9 fl (81-97); MEAN CORPUSCULAR HEMOGLOBIN 29.3 pg (27-33); MEAN CORPUSCULAR HGB CONC 33.3 g/dl (32-36); MEAN PLATELET VOLUME 10.2 fl (7.4-10.4); MONO % 6.5 % (0-9); PLATELET COUNT 386 K/uL (130-400); RED BLOOD COUNT 4.78 M/uL (3.80-5.40); RED CELL DISTRIBUTION WIDTH 13.6 % (11.5-14.5); WHITE BLOOD COUNT W/O DIFF 8.7 K/uL (4.2-12.2)
[2018-06-17 15:18] LABS: BLOOD UREA NITROGEN 18 mg/dL (8-23); CREATININE 0.6 mg/dL (0.5-0.9); EST GLOMERULAR FILTRATION RATE > 60 mL/min; LIPASE 20 U/L (13-60); TOTAL PROTEIN 8.2 g/dL (6.6-8.7)
[2018-06-17 15:20] LABS: GLUCOSE,RANDOM 115 mg/dL (74-109)
[2018-06-17 15:23] LABS: ALB/GLOB RATIO 1.3 (1.1-1.8); ALBUMIN 4.7 g/dL (4.0-5.0); ALKALINE PHOSPHATASE 78 U/L (35-104); ALT/SGPT 13 U/L (<33); AST/SGOT 16 U/L (10.0-35.0)
[2018-06-17] MEDS ORDERED: KETOROLAC 30 MG/ML VIAL IVP ONE (16:15)
[2018-06-17 16:20] LABS: URINE APPEARANCE CLEAR; URINE BILIRUBIN NEGATIVE (NEGATIVE); URINE BLOOD TRACE-I (NEGATIVE); URINE COLOR YELLOW; URINE GLUCOSE (UA) NEGATIVE (NEGATIVE); URINE KETONE NEGATIVE (NEGATIVE); URINE LEUKOCYTE ESTERASE LARGE (NEGATIVE); URINE NITRITE NEGATIVE (NEGATIVE); URINE PROTEIN NEGATIVE (NEGATIVE); URINE UROBILINOGEN 0.2 E.U./dL (0.20 - 1.00)
[2018-06-17 16:32] LABS: URINE BACTERIA FEW; URINE EPITHELIAL CELLS NONE SEEN (FEW); URINE RBC NONE SEEN (NONE SEEN); URINE WBC 16 - 20 (0-2/hpf)
[2018-06-17] MEDS ORDERED: CEPHALEXIN 500 MG CAPSULE PO STA (17:32)
== END 2018-06-17 17:49 | disposition home or self-care (01) ==
LOC: ER 14:32
DX: R10.11 Right upper quadrant pain (principal); N39.0 Urinary tract infection, site not specified; R11.0 Nausea; I10 Essential (primary) hypertension
CPT/HCPCS: 99284 ×2; 96365; 96375; 83690; 85025; 80053; 81001; 74176; J1885; J7030